=== PATIENT | female | born 1990 ===

== ENCOUNTER 2018-04-06 18:44 | Emergency (ER) | payer SELFPAY ==
[2018-04-06 18:57] VITALS: TEMP 97.7; O2SAT 100
[2018-04-06 20:03] LABS: BASO # 0.02 K/mm3 (0.0-2.0); BASO % 0.3 % (0.0-3.0); EOS # 0.2 (0.0-0.7); EOS % 2.3 % (1.5-5.0); GRAN # 4.01 (1.4-6.5); GRAN % 60.4 % (50.0-68.0); HEMOGLOBIN 12.7 g/dL (12.0-16.0); LYMPH # 1.9 (1.2-3.4); MEAN CELL VOLUME 87.6 fl (80.0-105.0); MEAN CORPUSCULAR HEMOGLOBIN 29.1 pg (25.0-35.0); MEAN CORPUSCULAR HGB CONC 33.2 g/dl (31.0-37.0); MONO # 0.5 (0.1-0.6); RBC 4.36 10^6/uL (3.5-6.1); RED CELL DISTRIBUTION WIDTH 12.3 % (11.5-14.5); WHITE BLOOD COUNT 6.6 10^3/ul (4.5-11.0)
[2018-04-06 20:59] LABS: ALB/GLOB RATIO 1.3 (1.1-1.8); ALBUMIN 3.8 g/dL (3.0-4.8); ALT/SGPT 21 U/L (7-56); AST/SGOT 21 U/L (14-36); BLOOD UREA NITROGEN 10 mg/dL (7-21); GFR AFRICAN-AMERICAN > 60; GFR NON-AFRICAN AMERICAN > 60
[2018-04-06 21:09] LABS: TROPONIN I < 0.01 ng/mL
--- NOTE | 2018-04-06 21:22 | ED PDOC ---
Arrival/HPI - General Chief Complaint: Chest Pain Time Seen by Provider: 04/06/18 19:30 - History of Present Illness Narrative History of Present Illness (Text): 28 y/o F c no PMHx p/w chest pain x 3 days. Pain is sharp, midsternal, worse with palpation or movement. Denies fever, cough, dyspnea, nausea, vomiting, OCP use, recent travel, previous surgeries. Past Medical History - Infectious Disease Hx of Infectious Diseases: None - Pulmonary Hx Asthma: Yes - Psychiatric Hx Substance Use: No Family/Social History Family/Social History: No Known Family HX Smoking Status: Never Smoked Hx Alcohol Use: No Hx Substance Use: No Allergies/Home Meds Allergies/Adverse Reactions: Allergies No Known Allergies Allergy (Verified 04/06/18 18:48) Review of Systems - Physician Review All systems were reviewed & negative as marked: Yes - Review of Systems Constitutional: absent: Fevers Respiratory: absent: SOB Physical Exam - Physical Exam Narrative Physical Exam (Text): Gen: NAD head: NC/AT Eyes: PERRL ENT: MMM Neck: Supple Chest: Reproducible tenderness CV: Regular rate Lungs: CTA b/l Abd: Soft, NT Back: No CVA tenderness Extremities: No edema Skin: No rash Neuro: Alert, no focal deficit Vital Signs Temp Pulse Resp BP Pulse Ox 04/06/18 18:57 97.7 F 66 17 130/82 100 Medical Decision Making ED Course and Treatment: EKG NSR 62 bpm, no ST/T wave changes. Normal axis. CXR no acute disease as read by me. Toradol administered, patient states pain improved. Discharged home, f/u primary care, return to ED for worsening pain, dyspnea, fever, or any other problem. - Lab Interpretations Lab Results: 04/06/18 19:51 04/06/18 20:30 Lab Results 04/06/18 20:41: Urine HCG, Qual Negative 04/06/18 20:30: Sodium 141, Potassium 3.6, Chloride 107, Carbon Dioxide 24, Anion Gap 14, BUN 10, Creatinine 0.7, Est GFR ( Amer) > 60, Est GFR (Non- Af Amer) > 60, Random Glucose 99, Calcium 9.0, Total Bilirubin 0.4, AST 21, ALT 21, Alkaline Phosphatase 78, Total Creatine Kinase 69, Troponin I < 0.01, Total Protein 6.9, Albumin 3.8, Globulin 3.0, Albumin/Globulin Ratio 1.3 04/06/18 19:51: WBC 6.6, RBC 4.36, Hgb 12.7, Hct 38.2, MCV 87.6, MCH 29.1, MCHC 33.2, RDW 12.3, Plt Count 294, MPV 10.0, Gran % 60.4, Lymph % (Auto) 29.0, Evangeline % (Auto) 8.0 H, Eos % (Auto) 2.3, Baso % (Auto) 0.3, Gran # 4.01, Lymph # (Auto ) 1.9, Evangeline # (Auto) 0.5, Eos # (Auto) 0.2, Baso # (Auto) 0.02 - RAD Interpretation Radiology Orders: 04/06/18 19:30 CHEST PORTABLE [RAD] Stat - Medication Orders Current Medication Orders: Discontinued Medications Ketorolac Tromethamine (Toradol) 30 mg IVP STAT STA Stop: 04/06/18 19:31 Last Admin: 04/06/18 19:55 Dose: 30 mg MAR Pain Assessment Document 04/06/18 19:55 OCS (Rec: 04/06/18 19:56 OCS [id number]) Pain Reassessment Is this a pain reassessment? No Sleep Is patient sleeping during reassessment? No Presence of Pain Presence of Pain Yes Pain Scale Used Pain Scale Used Numeric Location Pain Location Body Site Chest Description Description Intermittent Intensity of Pain at present 9 Aggravating Factors ADL's IVP Administration Document 04/06/18 19:55 OCS (Rec: 04/06/18 19:56 OCS [id number]) Charges for Administration # of IVP Administrations 1 Disposition/Present on Arrival - Present on Arrival Any Indicators Present on Arrival: No History of DVT/PE: No History of Uncontrolled Diabetes: No Urinary Catheter: No History of Decub. Ulcer: No History Surgical Site Infection Following: None - Disposition Have Diagnosis and Disposition been Completed?: Yes Diagnosis: Chest pain Disposition: HOME/ ROUTINE Disposition Time: 21:23 Patient Plan: Discharge Condition: STABLE Discharge Instructions (ExitCare): Chest Pain (ED) Prescriptions: Ibuprofen [Motrin] 600 mg PO Q6 #25 tab Referrals: Klarissa Novak MD [Staff Provider] - Follow up with primary [facility] [Outside] - Follow up with primary
[2018-04-06 21:31] VITALS: BP 125/79; PULSE 70; RESP 18
--- NOTE | 2018-04-07 08:52 | RAD ---
Date of service: 04/06/2018 HISTORY: cp COMPARISON: No prior. FINDINGS: LUNGS: No active pulmonary disease. PLEURA: No significant pleural effusion identified, no pneumothorax apparent. CARDIOVASCULAR: Normal. OSSEOUS STRUCTURES: No significant abnormalities. VISUALIZED UPPER ABDOMEN: Normal. OTHER FINDINGS: None. IMPRESSION: No active disease.
--- NOTE | 2018-04-07 09:37 | CARD ---
APPROVED REPORT Date of service: 04/06/2018 EKG Measurement Heart [id number] <Conclusion> Normal sinus rhythm Normal ECG
== END 2018-04-06 21:26 | disposition home or self-care (01) ==
LOC: ED 18:44
DX: R07.9 Chest pain, unspecified (principal)
CPT/HCPCS: 71045; 80053; 82550; 84484; 84703; 85025; 93005; 96374; 99283; J1885